=== PATIENT | female | born 1985 | race Caucasian/White ===

== ENCOUNTER 2020-04-24 08:22 | Emergency (ER) | payer SELFPAY ==
--- NOTE | 2020-04-24 08:47 | ER Document Report ---
ED General - General Chief Complaint: Chest Pain Stated Complaint: CHEST PAIN Time Seen by Provider: 04/24/20 08:46 Primary Care Provider: [facility] [Provider Group] - Follow up in 3-5 days - [facility] Notes: 34-year-old female with past medical history for heroin abuse to the emergency department with complaints of anterior nonradiating chest pain for the past week. She does admit to associated symptoms of nausea, intermittent diaphoresis, exertional shortness of breath. She states that she was seen at [facility] over the weekend and told that she had a potassium level of 2.5. She was offered admission at that time but declined it. She states she was given IV potassium and oral potassium in the emergency department but not discharged home with any potassium. Of note, she actually presented to the emergency department because she overdosed on heroin. She states that she had been sober for about 2 years and went to go visit some family in [place] and went on a rivera. She states when she overdosed, they had to use Narcan on her 3 times. Incidentally, this is when she found out that she had low potassium. She does report that she was having the chest pain prior to the heroin overdose. She takes no prescribed medications. She is currently buying Suboxone off the street to help her with withdrawal symptoms of the heroin. Denies any leg pain, history of DVT, arm pain or swelling from injection sites. She is a heavy smoker. She does not use alcohol. She was told to take a multivitamin [id number] for the potassium and she has been trying to do that. She is accompanied today by her girlfriend. - Related Data Allergies/Adverse Reactions: No Known Allergies Allergy (Unverified 04/24/20 10:14) Past Medical History - General Information source: Patient, Friend - Girlfriend - Social History Smoking Status: Current Every Day Smoker Frequency of alcohol use: None Drug Abuse: Heroin Family History: Reviewed & Not Pertinent Review of Systems - Review of Systems Constitutional: Diaphoresis. denies: Chills, Fever EENT: No symptoms reported Cardiovascular: Chest pain, Lightheaded. denies: Palpitations, Heart racing, Syncope, Dizziness Respiratory: Short of breath Gastrointestinal: denies: Abdominal pain, Diarrhea, Nausea, Vomiting Genitourinary: No symptoms reported Female Genitourinary: No symptoms reported Musculoskeletal: No symptoms reported Skin: No symptoms reported Hematologic/Lymphatic: No symptoms reported Neurological/Psychological: No symptoms reported -: Yes All other systems reviewed and negative Physical Exam - Vital signs Vitals: Pulse Ox 100 04/24/20 08:37 Interpretation: Normal - Notes Notes: PHYSICAL EXAMINATION: GENERAL: Well-appearing, well-nourished and in no acute distress. HEAD: Atraumatic, normocephalic. EYES: Pupils equal round and reactive to light, extraocular movements intact, sclera anicteric, conjunctiva are normal. ENT: nares patent, oropharynx clear without exudates. Moist mucous membranes. NECK: Normal range of motion, supple without lymphadenopathy LUNGS: Breath sounds clear to auscultation bilaterally and equal. No wheezes rales or rhonchi. No tenderness to palpation of the chest wall with no crepitus or step-off HEART: Regular rate and rhythm without murmurs, no pitting edema ABDOMEN: Soft, nontender, normoactive bowel sounds. No guarding, no rebound. No masses appreciated. No CVA tenderness EXTREMITIES: Normal range of motion, no pitting or edema. No cyanosis. NEUROLOGICAL: No focal neurological deficits. Moves all extremities spontaneously and on command. PSYCH: Normal mood, normal affect. SKIN: Warm, Dry, normal turgor, no rashes or lesions noted. Course - Re-evaluation Re-evalutation: 04/24/20 10:01 Noted D Dimer. Given her recent hx of travel and the chest pain, will go ahead and obtain CTA. Updated patient and she agrees with the plan. 04/24/20 12:39 CTA of the chest which is for PE. Also no aortic dissection or pneumonia. Updated the patient. Since her electrolytes have normalized and she was in [place] will encourage her to eat foods hearty in potassium as well as take her multivitamin. Troponin is negative. EKG is reassuring. Chest x-ray is negative. She is at constant chest pain for 1 week. Plan will be to discharge home. We will have her follow[facility]up with [facility]. She agrees with the plan. Encouraged to return if she has worsening symptoms such as worsening chest pain, passing out, fevers, any other concerns. She agrees with the plan. I did offer her resources for heroin abuse but she has declined them. She denies SI, HI, hallucinations - Vital Signs Vital signs: Temp Pulse Resp BP Pulse Ox 98.2 F 95 30 H 108/81 98 04/24/20 12:40 04/24/20 08:39 04/24/20 12:40 04/24/20 12:40 04/24/20 12:40 - Laboratory Results Result Diagrams: 04/24/20 08:36 04/24/20 08:36 Laboratory Results Interpreted: 04/24/20 08:36 D-Dimer 1.35 H Critical Laboratory Results Reviewed: No Critical Results - Radiology Results Critical Radiology Results Reviewed: No Critical Results - EKG Interpretation by Me Additional EKG results interpreted by me: 04/24/20 Rate: 92 Rhythm: Sinus rhythm Interpretation: No STEMI, normal axis, no LVH. No comparison Discharge - Discharge Clinical Impression: Chest pain Qualifiers: Chest pain type: unspecified Qualified Code(s): R07.9 - Chest pain, unspecified Condition: Stable Disposition: HOME, SELF-CARE Instructions: Chest Pain of Unclear Cause ([facility]) Additional Instructions: You may take NSAIDs for your chest pain. Please follow-up with [facility]. Return if you have worsening symptoms such as worsening chest pain, passing out, fevers, any other concerns. Forms: Return to Work Referrals: [facility] [Provider Group] - Follow up in 3-5 days
[2020-04-24 08:53] LABS: ABSOLUTE EOSINOPHILS # (AUTO) 0.1 10^3/uL (0.0-0.6); ABSOLUTE MONOCYTES (AUTO) 0.6 10^3/uL (0.1-1.4); ABSOLUTE NEUT (AUTO) 4.1 10^3/uL (1.7-8.2); BASOPHILS % (AUTO) 0.9 % (0-2); HEMATOCRIT 38.8 % (36.0-47.0); HEMOGLOBIN 13.2 g/dL (12.0-15.5); LYMPHOCYTES % (AUTO) 17.9 % (13-45); MEAN CORPUSCULAR HEMOGLOBIN 29.5 pg (27.0-33.4); MEAN CORPUSCULAR HGB CONC 34.2 g/dL (32.0-36.0); MEAN CORPUSCULAR VOLUME 86 fl (80-97); MONOCYTES % (AUTO) 9.7 % (3-13); PLATELET COUNT 299 10^3/uL (150-450); RED BLOOD COUNT 4.49 10^6/uL (3.72-5.28); RED CELL DISTRIBUTION WIDTH 13.2 % (11.5-14.0); SEGMENTED NEUTROPHILS % (AUTO) 70.5 % (42-78); TOTAL CELLS COUNTED % (AUTO) 100 %; WHITE BLOOD COUNT 5.8 10^3/uL (4.0-10.5)
[2020-04-24 09:13] LABS: ALBUMIN 3.9 g/dL (3.5-5.0); ALKALINE PHOSPHATASE 72 U/L (38-126); ANION GAP 7 (5-19); ASPARTATE AMINO TRANSFERASE 28 U/L (14-36); BILIRUBIN,DIRECT 0.2 mg/dL (0.0-0.4); BILIRUBIN,TOTAL 0.6 mg/dL (0.2-1.3); BLOOD UREA NITROGEN 8 mg/dL (7-20); CALCIUM 9.3 mg/dL (8.4-10.2); CARBON DIOXIDE 28 mmol/L (22-30); CHLORIDE 104 mmol/L (98-107); CREATINE KINASE 42 U/L (30-135); GLUCOSE 102 mg/dL (75-110); POTASSIUM 4.4 mmol/L (3.6-5.0); TOTAL PROTEIN 6.7 g/dL (6.3-8.2)
[2020-04-24] MEDS ORDERED: KETOROLAC TROMETHAMINE INJ/PF 30 MG/1 ML SDV IV ONE (09:40)
[2020-04-24] MEDS ORDERED: NORMAL SALINE 1000 ML 1,000 ML IV ONE (09:40)
--- NOTE | 2020-04-24 09:46 | RADIOLOGY REPORT (SQ) ---
EXAM DESCRIPTION: CHEST SINGLE VIEW IMAGES COMPLETED DATE/TIME: 04/24/2020 9:33 am REASON FOR STUDY: bed 14 chest pain COMPARISON: None. EXAM PARAMETERS: NUMBER OF VIEWS: One view. TECHNIQUE: An AP view of the chest was obtained. RADIATION DOSE: NA LIMITATIONS: None. FINDINGS: LUNGS AND PLEURA: No consolidation, pleural effusion or pneumothorax. MEDIASTINUM AND HILAR STRUCTURES: No mediastinal or hilar contour abnormality. HEART AND VASCULAR STRUCTURES: The cardiac silhouette and pulmonary vasculature are within normal myles its. BONES: No acute findings. HARDWARE: None in the chest. OTHER: No other finding. IMPRESSION: No acute cardiopulmonary process. TECHNICAL DOCUMENTATION: JOB ID: [id number] 2010 [employer]- All Rights Reserved Reading location - IP/workstation name: [email or web address]
[2020-04-24 09:55] LABS: CREATINE KINASE MB < 0.22 ng/mL (<4.55); TROPONIN I < 0.012 ng/mL
--- NOTE | 2020-04-24 11:28 | RADIOLOGY REPORT (SQ) ---
EXAM DESCRIPTION: CTA CHEST IMAGES COMPLETED DATE/TIME: 04/24/2020 11:14 am REASON FOR STUDY: chest pain, eval for PE, elevated D Dimer COMPARISON: AP view of the chest from 04/24/2020. TECHNIQUE: CT scan of the chest performed using helical scanning technique with dynamic intravenous contrast injection. Images reviewed with lung, soft tissue and bone windows. Reconstructed coronal and sagittal MPR images reviewed. Additional 3 dimensional post-processing performed to develop Maximal Intensity Projection images (OR P). All images stored on PACS. All CT scanners at this facility use dose modulation, iterative reconstruction, and/or weight based d osing when appropriate to reduce radiation dose to as low as reasonably achievable (ALARA). [facility]: Dose Right [facility]: CareDose [facility]: Dose Right [facility]: Teradose 4D [facility]: [employer] CONTRAST TYPE AND DOSE: Contrast/concentration: Isovue 350.00 mmol/ml; Total Contrast Delivered: 52. 0 ml; Total Saline Delivered: 65.0 ml Contrast bolus optimized for the pulmonary arteries. RENAL FUNCTION: None required. The patient is less than 50 years old. RADIATION DOSE: CT Rad equipment meets quality standard of care and radiation dose reduction techniq ues were employed. CTDIvol: 7.2 - 14.1 mGy. DLP: 309 mGy-cm. LIMITATIONS: None. FINDINGS: LUNGS AND PLEURA: The trachea and main bronchi are patent. There is no bronchiectasis, br onchial wall thickening or mucous plugging. There is no consolidation, ground-glass opacification, p leural effusion or pneumothorax. AORTA AND GREAT VESSELS: No aneurysm or dissection of the thoracic aorta. HEART: No pericardial effusion. No cardiomegaly. PULMONARY ARTERIES: No emboli. HILAR AND MEDIASTINAL STRUCTURES: No adenopathy or mass. HARDWARE: None in the chest. UPPER ABDOMEN: Cholecystectomy clips and 3 x 2.5 cm lesion in the dome of the liver in that has an in ternal attenuation of less than 10 Hounsfield units. THYROID AND OTHER SOFT TISSUES: No adenopathy or mass. BONES: No fracture or osseous lesion. 3D MIPS: Confirm above findings. OTHER: No other findings. IMPRESSION: No acute cardiopulmonary process and no pulmonary emboli. COMMENT: Quality ID # [id number]: Final reports with documentation of one or more dose reduction techniques (e.g., Automated exposure control, adjustment of the mA and/or kV according to patient size, use of iterative reconstruction technique) TECHNICAL DOCUMENTATION: JOB ID: [id number] 2010 [employer]- All Rights Reserved Reading location - IP/workstation name: [email or web address]
--- NOTE | 2020-04-24 12:05 | EKG REPORT ---
SEVERITY:- BORDERLINE ECG - SINUS RHYTHM PROBABLE LEFT ATRIAL ABNORMALITY : Confirmed by: Alexsander Bolden MD 24-Apr-2020 12:04:25
[2020-04-24 13:03] VITALS: BP 108/81
== END 2020-04-24 13:03 | disposition home or self-care (01) ==
LOC: ER 08:22
DX: R07.9 Chest pain, unspecified (principal); R11.0 Nausea; R61 Generalized hyperhidrosis; R06.02 Shortness of breath; R79.89 Other specified abnormal findings of blood chemistry; R42 Dizziness and giddiness; F11.10 Opioid abuse, uncomplicated; F17.200 Nicotine dependence, unspecified, uncomplicated
CPT/HCPCS: 93005; 99285; 96361; 96374; 36415; 82553; 82550; 83735; 84703; 85025; 80053; 84484; 85379; 71045; 71275; 93010; J1885; J7030